=== PATIENT | male | born 1985 | race African-American/Black ===

== ENCOUNTER 2016-06-06 22:35 | Observation (INO) ==
[2016-06-06] MEDS ORDERED: PEPCID IV ONE (23:20)
[2016-06-06] MEDS ORDERED: BENADRYL IV ONE (23:20)
[2016-06-06] MEDS ORDERED: SODIUM CHLORIDE 0.9% INJ ONE (23:20)
[2016-06-06] MEDS ORDERED: SOLU-MEDROL IV ONE (23:20)
[2016-06-06] MEDS ORDERED: DECADRON IM ONE (23:20)
[2016-06-06 23:57] LABS: BASO% 1.2 % (0.0-0.8); EOS# 0.07 X1000 (0.0-0.7); EOS% 0.8 % (0.0-10.0); HEMATOCRIT 43.1 % (42.0-52.0); HEMOGLOBIN 15.8 g/dL (14.0-18.0); IMM GRAN# 0.01 X1000 (0.0-0.04); IMM GRAN% 0.1 % (0.0-0.5); LYMPH# 1.67 X1000 (1.2-3.4); LYMPH% 18.9 % (20.5-51.1); MANUAL DIFF NEEDED? NO; MCH 28.7 PG (27-31); MCHC 36.7 g/dL (33-37); MCV 78.4 FL (81-99); MONO# 0.95 X1000 (0.11-0.59); MONO% 10.8 % (1.7-9.3); NEUT% 68.2 % (42.2-75.2); PLT 275 X1000 (130-400)
[2016-06-07 00:15] LABS: AGAP 19; ALBUMIN 4.8 g/dL (3.5-5.0); ALKALINE PHOSPHATASE 55 U/L (32-122); BUN 9 mg/dL (8-22); CALCIUM 9.6 mg/dL (8.8-10.2); CHLORIDE 101 mmol/L (98-107); COSMO 283; GOT 33 U/L (10-34); GPT 12 U/L (10-44); MAGNESIUM 2.1 mg/dL (1.5-2.7); POTASSIUM 3.4 mmol/L (3.5-5.1); SODIUM 143 mmol/L (136-145); TCO2 23 mmol/L (25-35); TOTAL PROTEIN 7.8 g/dL (6.3-8.3)
[2016-06-07 00:25] LABS: CK PROFILE 562 U/L (24-204)
[2016-06-07] MEDS ORDERED: LABETALOL IV ONE ×2 (00:30→00:47)
[2016-06-07 00:39] LABS: INR 0.95 (0.86-1.15)
[2016-06-07 00:40] LABS: PTT PL 30.2 Seconds (22.6-43.9)
[2016-06-07 00:43] LABS: CK INDEX 0.6 (0.0-2.5); CK-MB 3.63 ng/mL (0.0-5.0)
--- NOTE | 2016-06-07 01:02 | EKG Report ---
Test Performed on : 06/07/2016 00:11:29 AM Test Reason : CHEST PAIN Blood Pressure : / mmHG Vent. Rate : 086 BPM Atrial Rate : 086 BPM P-R Int : 160 ms QRS Dur : 088 ms QT Int : 378 ms P-R-T Axes : 070 048 062 degrees QTc Int : 452 ms Normal sinus rhythm. Normal ECG No previous ECGs available Unconfirmed Result
[2016-06-07] MEDS ORDERED: ZOFRAN IV PRN ×2 (01:04→01:16)
[2016-06-07] MEDS ORDERED: NS 1,000 ML IV ONE ×2 (01:04→01:16)
[2016-06-07] MEDS ORDERED: TYLENOL PO PRN (01:04)
[2016-06-07] MEDS ORDERED: TORADOL IV PRN (01:16)
[2016-06-07] MEDS: SOLU-MEDROL IV SCH ×3 (05:35→15:42)
--- NOTE | 2016-06-07 06:46 | Diag Imaging Result Document ---
PROCEDURE NAME: CHEST-2 VIEWS - 06/06/2016 FRONTAL AND LATERAL CHEST, TWO VIEWS: COMPARISON: No comparison films. FINDINGS: The lungs are well expanded. The heart is not enlarged. The vessels are not distended. There are no infiltrates. No pleural effusions. No free air beneath the diaphragm. IMPRESSION: No acute abnormality.
[2016-06-07] MEDS ORDERED: NORVASC PO SCH (13:00)
--- NOTE | 2016-06-07 13:27 | HISTORY AND PHYSICAL ---
CHIEF COMPLAINT: Upper lip swollen. HISTORY OF PRESENTING ILLNESS: This is a 31-year-old -[place] male, who states that he was at work yesterday when he began feeling his upper lip tingling and swelling. He continued to work throughout the day and the swelling progressed. He denied any shortness of breath or chest pain. Her states that he has not been on any medications on a routine basis. He is not allergic to any foods that he is aware of. He states that he was in his normal state of health until this happened yesterday and his only allergy is to amoxicillin. He did state though that time on Friday he had been in the [employer], and that he does have seasonal allergies. In the emergency room, he was given Decadron 10 mg IM x1, Benadryl 50 mg IV x1, Pepcid 20 mg IV x1. His blood pressure when he came in was 160/102, so he was given labetalol 20 mg IV x2 doses and Solu-Medrol 125 mg IV x1. Visibly, he still has swelling, moderate in significance to his upper lip. No breathing difficulties are noted, and he was admitted to the medical floor for further evaluation and treatment. PAST MEDICAL HISTORY: Hypertension without any current medication treatment. Seasonal allergies. PAST SURGICAL HISTORY: None. FAMILY HISTORY: Diabetes and hypertension. SOCIAL HISTORY: He currently lives with family. He smokes a half a pack of cigarettes a day and has done so for the past 12 years. Alcohol: He states he drinks socially on the weekends and denied any illicit drug use. ALLERGIES: Amoxicillin. HOME MEDICATIONS: He does not take any medications on a routine basis at this time. LABORATORY DATA: White blood cell count of 8.82, hemoglobin 15.8, hematocrit 43.1, platelets 275,000. PT and INR of 13 and 0.95 with a D-dimer of less than 0.22. Sodium of 143, potassium 3.4, chloride 101, CO2 of 23, BUN of 9, creatinine 0.8, glucose of 89. Magnesium of 2.1. Creatine kinase was 562. CK-MB of 3.63 with a troponin of less than 0.010 with a proBNP of 32. A chest x-ray showed no acute abnormality. EKG showed normal sinus rhythm at 86. REVIEW OF SYSTEMS: He denied any fever, chills, blurred vision, dizziness, chest pain, coughing, shortness of breath, constipation, diarrhea, abdominal pain, nausea, vomiting, burning or hurting with urination. He was only positive for tingling and swelling to his upper lip. PHYSICAL EXAMINATION: VITAL SIGNS: On arrival, he had a blood pressure of 98.3, pulse 102, respirations 18, blood pressure was 160/102, saturating 98% on room air. Currently, blood pressure is down to 145/94. GENERAL: This is a 31-year-old -[place] male who is sitting up in the bed and answers all questions appropriately. HEENT: Normocephalic and atraumatic. Pupils are equal, round, and reactive to light. Extraocular movements are intact. The oropharynx and nares are clear. The patient does have a moderate amount of edema to his upper lip. NECK: Supple. LUNGS: Clear to auscultation bilaterally with equal lung expansion and chest wall movement. HEART: Regular rate and rhythm. No murmurs, rubs, or gallops. ABDOMEN: Soft, nontender, nondistended. Bowel sounds are present x4 quadrants. EXTREMITIES: There is no clubbing, cyanosis, or edema. NEUROLOGICAL: The cranial nerves 2-12 are grossly intact. ASSESSMENT: 1. Angioedema. 2. Hypertension. 3. Mild rhabdomyolysis. 4. Tobacco abuse. PLAN: He was admitted to the medical unit at [place], placed on telemetry. Healthy heart diet. He was given previously listed Decadron 10 mg IM, Benadryl 50 mg IV, Pepcid 20 mg IV and Solu- Medrol 125 mg IV all x1. He was placed on normal saline at 125 mL an hour. Placed on Solu-Medrol 60 mg IV q.6, Zofran 4 mg IV q.4, Toradol 15 mg IV q.4 hours p.r.n. and Tylenol 650 p.o. q.6 hours p.r.n. It is truly unclear as to what has caused this angioedema. 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 We will discuss this further with attending to determine if we can find the reason for his angioedema. We will also start the patient on Norvasc 5 mg 1 p.o. daily for his elevated blood pressure, and we will recheck cardiac enzymes. Dictated by ELIECER Culver for Vin Sierra MD cc: ELIECER Culver MD Raphael K. Quansah, MD
[2016-06-07] MEDS: NORVASC PO SCH (20:52)
[2016-06-08] MEDS: SOLU-MEDROL IV SCH ×2 (03:23→15:18)
[2016-06-08 06:35] LABS: CK-MB 2.64 ng/mL (0.0-5.0)
[2016-06-08] MEDS: NORVASC PO SCH (08:07)
[2016-06-08 12:12] VITALS: BP 144/86
[2016-06-08] MEDS ORDERED: COZAAR PO SCH (12:15)
--- NOTE | 2016-06-08 12:55 | CONSULTATION ---
DATE OF CONSULTATION: 06/08/2016 REASON FOR CONSULTATION: The patient presented with upper lip swelling. HISTORY: This is a 31-year-old -[place] African gentleman who was at work yesterday and began feeling his upper lip tingling and swelling. He continued that through the day. He is not on any medication. He has seasonal allergies. He is allergic to amoxicillin. He has not taken any amoxicillin at all. He said he was [place], and he came in. In the emergency room, he was given Decadron, Benadryl, and Pepcid. Blood pressure was 160/102 when he came in. From a cardiac standpoint, he does not complain of any chest pain or palpitations. There is no dizziness or syncope. It was associated with swelling in his upper lip. There was no breathing difficulty noted. PAST MEDICAL HISTORY: 1. He was diagnosed to have hypertension. He is not on any current medications. 2. 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 PAST SURGICAL HISTORY: None. FAMILY HISTORY: Diabetes, hypertension. SOCIAL HISTORY: He lives with his family. He smokes about a half a pack of cigarettes a day. There is no history of alcohol or illicit drug abuse. ALLERGIES: Allergic to amoxicillin. REVIEW OF SYSTEMS: Fourteen-point review of system was done. GI System: There is no history of nausea, vomiting, diarrhea. Respiratory System: There is no history of breathing difficulty. There is no cough or hemoptysis. Genitourinary System: There is no dysuria or hematuria. PHYSICAL EXAMINATION: Blood pressure when he came in was 160/102. Cardiovascular System: Normal jugular venous pressure. There is no thyromegaly. No carotid bruit. First and second heart sounds were heard. There is no S3 gallop. Respiratory System: Normal air entry. There is no crepitations or rhonchi. Abdomen is soft, nontender. There was no guarding or rigidity. Bowel sounds were heard. Central Nervous System: Alert and oriented and was moving all 4 extremities. Examination of extremities revealed no pedal edema. HEENT: Atraumatic, normocephalic. Pupils were equal and reacting to light. Examination of his lips revealed mild swelling in his upper lip. LABORATORY DATA: WBCs 8.82, hemoglobin 15.8, platelet 275. D-dimer less than 0.22. Troponins negative. EKG revealed normal sinus rhythm, rate of 86. Chest x-ray unremarkable. ASSESSMENT AND PLAN: Ms. Mau Higgins is a 31-year-old -[place] African gentleman who comes with complaints of swelling in his upper lip. He is noted to have elevated blood pressure as well. He is not on any medications, and he is has seasonal allergies. He has not taken any over-the- counter medications to account for the swelling in the lip. He, from a cardiac standpoint, has history of being diagnosed to have WolffParkinsonWhite syndrome on the EKG 19 years back. Current EKG and telemetry is normal. RECOMMENDATIONS: 1. Treat as hypertension. 2. From a cardiac standpoint, we will discharge him home and follow him up as an outpatient. We will get an echocardiogram and see if he has any exercise-induced dysrhythmias. I have not made any other changes to his medications. Thank for the consult. cc: MD Sin Gonzalez MD
--- NOTE | 2016-06-08 19:46 | DISCHARGE SUMMARY ---
ADMISSION DATE: 06/07/2016 DISCHARGE DATE: 06/08/2016 ADMISSION DIAGNOSES: 1. Angioedema. 2. Hypertension. 3. Mild rhabdomyolysis. 4. Tobacco abuse. DISCHARGE DIAGNOSIS: 1. Angioedema. 2. Hypertension. 3. Mild rhabdomyolysis. 4. Tobacco abuse. 5. Cucuo-Qgnlzvrwt-Jwgiv syndrome. SUMMARY OF FINDINGS: This is a 31-year-old male who states that he began feeling his upper lip tingling and swelling throughout the day and progressed on 06/07/2016. Denied any shortness of breath or chest pain. States that he has not been on any medications on a routine basis, is not allergic to any foods that he was aware of. States he was in his normal state of health until this happened and his only known allergy to medications is amoxicillin but that he does have seasonal allergies and had been out in [place] the day prior. In the emergency room he was given Decadron 10 mg IM x1, Benadryl 50 IV x1, Pepcid 20 mg IV x1. Blood pressure was elevated at 160/102 and was given labetalol 20 mg IV x2 doses and Solu-Medrol 125 IV x1. He had visible moderate amount of swelling to his upper lip but no breathing difficulties. It was not until last night when his mom came that she told the nurse that he had a history of Irma- Parkinson-White syndrome and we were unaware of this initially and placed him on Norvasc 5 mg p.o. b.i.d. Once we were made aware of that this morning we discontinued it. We discussed this with the patient and he agreed to have cardiology see him as he has not seen cardiology since he was 19 and it was felt that he could safely be put on some losartan 50 mg p.o. daily. From a cardiac standpoint he will follow up with Dr. Andersen on outpatient basis and get an echocardiogram and see if he has any exercise-induced dysrhythmias and that will all be followed up on outpatient basis. So it is now felt that he can safely be discharged home today. DISCHARGE MEDICATIONS: He will get a prescription for losartan 50 mg 1 p.o. daily #30 with 2 refills and a Medrol Dosepak as directed. DISCHARGE INSTRUCTIONS: All discharge instructions have been reviewed with the patient and he verbalized understanding. TIME SPENT: A 35-minute discharge. Dictated by ELIECER Culver for Vin Sierra MD cc: MD Vin Gonzalez MD Raphael K. Quansah, MD
--- NOTE | 2016-07-05 00:38 | ED EKG INTERP ---
This chart was entered by Jennifer Lezama Scribe, acting as scribe for Gabe Morris DO. EKG Interpretation - EKG Time of EKG reading by physician:: 00:30 EKG Read and Signed by:: Gabe Morris EKG Interpretation (*Must complete 3 of following elements*): Abnormal Rate: 58 Rhythm: JUNCTIONAL RYHTHM QRS: LVH FL Interval: normal This chart was documented by the indicated scribe, (Jennifer Lezama Scribe) and accurately reflects the services I performed and decisions made by , Gabe Morris DO, as attested by the provider's signature.
--- NOTE | 2016-07-05 00:40 | PROVIDER DOCUMENTATION ---
This chart was entered by Jennifer Lezama Scribe, acting as scribe for Gabe Morris DO. HPI-Rash/Wound/ReCheck - General Chief Complaint: Edema Stated Complaint: ALLERGIC REACTION Time Seen by Provider: 06/06/16 23:15 Source: patient Allergies/Adverse Reactions: Allergies Allergy/AdvReac Type Severity Reaction Status Date / Time amoxicillin [Amoxicillin] Allergy Mild Unknown Verified 06/06/16 22:52 Home Medications: Home Medication List Medication Instructions Recorded Confirmed Last Taken Type Losartan [Cozaar] 50 mg PO DAILY #30 tablet 06/08/16 Unknown Rx Methylprednisolone [Medrol Dosepak] 4 mg PO DIRECTED #1 package 06/08/16 Unknown Rx - History of Present Illness-Dermatology Nature of Presenting Problem: PT IS A 31YOM PRESENTING TO THE ED C/O POSSIBLE ALLERGIC REACTION. PTS UPPER LIP IS SWOLLEN AND HE STATES SOME SOB WITH MILD CP. PT HAS NO IDEA WHAT HE COULD BE ALLERGIC TO. NO OTHER COMPLAINTS AT THIS TIME Location: reports: face Quality: reports: other (SORE FROM THE [place]DE[place]) Severity: reports: moderate, severe Onset/Duration: reports: just prior to arrival Timing: reports: still present Context/Associated Symptoms: reports: unknown bite/sting, other (UPPER LIP SWOLLEN AND HTN) Identifiable cause?: No Exposure: reports: unknown cause Locality of Occurance: Home Similar Symptoms Previously?: No Recently seen or treated by another doctor?: No Review of Systems - Adult - REVIEW OF SYSTEMS - ADULT Constitutional: reports: no symptoms reported Eyes: reports: no symptoms reported Ears, Nose, Mouth & Throat: reports: no symptoms reported Cardiovascular: reports: see HPI, chest pain, other (HTN 182/125). denies: palpitations Respiratory: reports: see HPI, dyspnea on exertion, shortness of breath. denies : wheezing Gastrointestinal: reports: no symptoms reported Genitourinary: reports: no symptoms reported Musculoskeletal: reports: no symptoms reported Integumentary: reports: see HPI, skin thickening, other. denies: nail changes Neurological: reports: no symptoms reported Psychiatric: reports: no symptoms reported Endocrine: reports: no symptoms reported Hematologic/Lymphatic: reports: no symptoms reported Allergic/Immunologic: reports: see HPI, allergic reactions, other (UNKNOWN CAUSE ). denies: allergic rhinitis, urticaria All Other Systems: Reviewed and Negative Past History - Adult - PAST MEDICAL HISTORY-ADULT Review of Records: reports: Old Records Reviewed, Nursing Assessment Review, Medications Reviewed, Social history reviewed & non-contributory. Major Childhood Illnesses: reports: denies history Cardiovascular: reports: denies history Respiratory: reports: asthma Gastrointestinal: reports: denies history Obstetrical/Gynecological: reports: denies history Genitourinary: reports: denies history Musculoskeletal: reports: denies history Neurological: reports: denies history Endocrine/Immune: reports: denies history Other Conditions: reports: denies history - PRIOR SURGERIES/PROCEDURES Surgical/Procedure History: reports: none - PRIOR HOSPITALIZATIONS Prior Hospitalizations: reports: none - IMMUNIZATION STATUS Childhood Immunizations: See Nurse Assessment Flu Vaccine: See Nurse Assessment - FAMILY HISTORY Family History: reviewed, not pertinent - SOCIAL HISTORY Smoking: cigarettes, less than 1 pack/day Provider spent 3-5 mins advising pt. on dangers of tobacco.: Discussed manners to quit use, and f/u contacts for add'l counseling. Substance Use: none/never, alcohol Alcohol Use Frequency: occasionally Number of drinks per typical drinking period:: 3-4 drinks Living Situation: family Physical Exam-General - PHYSICAL EXAM-ADULT Initial Vital Signs Reviewed: Yes - CONSTITUTIONAL General Appearance: appears well, alert, mild distress, anxious - EYES Eyes: PERRL/EOMI, pink conjunctivae, FUN - HEAD, EARS, NOSE, MOUTH & THROAT HENMT: normocephalic/atraumatic, moist mucous membranes, TMs normal, pharynx normal, angioedema (UPPER LIP) - NECK Neck: non-tender, full range of motion, supple, normal inspection - RESPIRATORY Respiratory: chest non-tender, lungs clear, normal breath sounds, no pleuratic chest pain, no respiratory distress, no accessory muscle use - CARDIOVASCULAR Cardiovascular: normal peripheral pulses, no edema, no gallop, no JVD, no murmur , tachycardia, other (HTN). negative: regular rate, rhythm - GASTROINTESTINAL (ABDOMEN) Abdominal Exam: normal bowel sounds, non tender, soft, no organomegaly, no pulsatile mass - LYMPHATIC Lymphatic: no adenopathy - MUSCULOSKELETAL Back Exam: normal inspection, no CVA tenderness, no vertebral tenderness Extremity: normal range of motion, non-tender, normal gait, normal inspection, no pedal edema, no calf tenderness, normal capillary refill, pelvis stable - SKIN Integumentary: normal color, normal turgor, warm/dry - NEUROLOGIC Neurologic: academic tutor II-XII nml as tested, grossly normal, no motor/sensory deficits - PSYCHIATRIC Psych/Mental Status: normal thought content, normal thought process, oriented x 3, anxious. negative: depressed affect Progress - PLAN OF CARE/RESULTS Progress/Plan/Lab Results: Orders Category Date Time Status Admit - [facility] Routine AdmDCTranf 06/07/16 01:00 Ordered Activity - Strict Bedrest ORDERED Care 06/07/16 01:04 Inactive Activity - Strict Bedrest ORDERED Care 06/07/16 01:16 Active Call Admitting on Arrival AT ADMISSION Care 06/07/16 01:00 Completed Cardiac Monitoring DIRECTED Care 06/06/16 23:20 Active Saline Loc NOW Care 06/06/16 23:20 Completed Vital Signs Order ARRIVAL TO ROOM Care 06/07/16 01:04 Active Vital Signs Order ARRIVAL TO ROOM Care 06/07/16 01:16 Active Heart Healthy Diet Diet 06/07/16 01:03 Completed NPO Diet 06/07/16 01:04 Completed CHEST-2 VIEWS [RAD] Stat Exams 06/06/16 23:20 Completed CBC WITH ELECTRONIC DIFF [HEME] Stat Lab 06/06/16 23:35 Completed CK PROFILE [SP CHEM] Stat Lab 06/06/16 23:35 Completed COMPREHENSIVE METABOLIC PANEL [CHEM] Stat Lab 06/06/16 23:35 Com[address] D-D[address]ER [address] [COAG] Stat Lab 06/06/16 23:35 Completed MAGNESIUM [CHEM] Stat Lab 06/06/16 23:35 Completed PRO B-NATRIURETIC PEPTIDE Stat Lab 06/06/16 23:35 Completed [address]IME WITH INR PL [COAG] Stat Lab 06/06/16 23:[address] [COAG] Stat Lab 06/06/16 23:35 Completed TROPONIN T Stat Lab 06/06/16 23:35 Completed 0.9% Sodium Chloride Inj [Ns] 1,000 ml Med 06/07/16 01:04 Discontinued IV 125 mls/hr 0.9% Sodium Chloride Inj [Ns] 1,000 ml Med 06/07/16 01:16 Discontinued IV 125 mls/hr Acetaminophen [Tylenol] Med 06/07/16 01:04 Discontinued 650 mg PO Q6H PRN PRN Dexamethasone [Decadron] Med 06/06/16 23:20 Discontinued 10 mg IM NOW ONE Diphenhydramine [Benadryl] Med 06/06/16 23:20 Discontinued 50 mg IV NOW ONE Famotidine [Pepcid] Med 06/06/16 23:20 Discontinued 20 mg IV NOW ONE Ketorolac [Toradol] Med 06/07/16 01:16 Discontinued 15 mg IV Q4H PRN PRN Labetalol Med 06/07/16 00:30 Discontinued 20 mg IV NOW ONE Labetalol Med 06/07/16 00:47 Discontinued 20 mg IV NOW ONE Methylprednisolone Sod Succ [Solu-Medrol] Med 06/06/16 23:20 Discontinued 125 mg IV NOW ONE Methylprednisolone Sod Succ [Solu-Medrol] Med 06/07/16 06:00 Discontinued 60 mg IV Q6H Ondansetron [Zofran] Med 06/07/16 01:04 Discontinued 4 mg IV Q4H PRN PRN Ondansetron [Zofran] Med 06/07/16 01:16 Discontinued 4 mg IV Q4H PRN PRN Sodium Chloride 0.9% Med 06/06/16 23:20 Discontinued 5 - 10 ml INJ NOW ONE Oxygen Device Routine Oth 06/07/16 01:04 Completed Oxygen Device Routine Oth 06/07/16 01:16 Completed Telemetry [OM.EQ] Routine Oth 06/07/16 01:00 Active EKG [EKG] Stat Ther 06/06/16 23:20 Draft Transfer/Admit Order [TRANSFER] Routine Transfer 06/07/16 01:01 Completed Result Diagrams: 06/06/16 23:35 06/06/16 23:35 Departure - Departure Time of Disposition Decision: 15:12 DIAGNOSIS: Rhabdomyolysis Qualifiers: Rhabdomyolysis type: non-traumatic Qualified Code(s): M62.82 - Rhabdomyolysis Disposition: ADMITTED INPATIENT 09 Certified Medical Emergency: Emergent Condition: Good - Critical Care Note This patient required my direct & personal management of CC.: No This chart was documented by the indicated scribe, (Jennifer Lezama Scribe) and accurately reflects the services I performed and decisions made by me, Gabe Morris DO, as attested by the provider's signature.
== END 2016-06-08 15:45 | disposition home or self-care (01) ==
LOC: P.ED 22:35 → INTOOBSV 06-07 01:09 → P.MEDSURG 06-07 01:09 → SUATTDRO 06-07 01:09
PROVIDERS: ADMIT Internal Medicine; ATTEND Internal Medicine